=== PATIENT | male | born 1935 | race Caucasian/White ===

== ENCOUNTER 2019-02-25 10:30 | Emergency (ER) | payer MEDICARE, BC ==
[2019-02-25] MEDS ORDERED: Sodium Chloride 0.9% 10 ML Syringe FLUSH PRN (10:48)
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
[2019-02-25 11:17] LABS: ANION GAP 15.1 mmol/L (5-15); CHLORIDE,CL 106 mmol/L (98-115); SODIUM,NA 140 mmol/L (136-145)
--- NOTE | 2019-02-25 11:56 | CR ---
[id number] RAD/RAD Chest PA And Lateral EXAM: RAD Chest PA And Lateral INDICATION: DIZZINESS. COMPARISON: None. DISCUSSION: Cardiomegaly and mild central vascular congestion. Left chest wall cardiac conduction device in place. Scattered calcified granulomas in the lungs. No suspicious nodules or masses. No infiltrate, effusion, pneumothorax, or edema. IMPRESSION: No acute findings in the chest. Other findings are described above. Magno Diallo MD 02/25/19 1151 Thank you for allowing us to participate in the care of your patient.
--- NOTE | 2019-02-25 11:59 | CT ---
[id number] CT/CT Head WO IV EXAM: CT Head WO IV CLINICAL DATA: DIZZINESS. COMPARISON STUDY: None FINDINGS: No intracranial hemorrhage, extra-axial fluid collection, mass, or acute ischemia. Moderate changes of chronic small vessel disease throughout the brain. Chronic bilateral basal ganglia calcification. Mild changes of paranasal sinusitis. No air-fluid levels. IMPRESSION: No acute intracranial findings. Other findings are described above. Magno Diallo MD 02/25/19 1158 Thank you for allowing us to participate in the care of your patient.
== END 2019-02-25 12:20 | disposition home or self-care (01) ==
LOC: KA.ED 10:30
DX: R41.0 Disorientation, unspecified (principal); N39.0 Urinary tract infection, site not specified; Z79.82 Long term (current) use of aspirin; Z79.899 Other long term (current) drug therapy; Z88.0 Allergy status to penicillin
CPT/HCPCS: 70450; 71046; 80053; 81001; 85025; 85610; 85730; 99283; 99285-25

== ENCOUNTER 2019-03-18 07:48 | Day surgery (SDC) | payer MEDICARE, BC ==
[2019-03-18] MEDS ORDERED: Propofol 200 MG/20 ML SDV IV ONE (07:49)
[2019-03-18] MEDS ORDERED: Sodium Chloride 0.9% 1,000 ML IV SCH (08:00)
[2019-03-18] MEDS ORDERED: Sodium Chloride 0.9% 10 ML Syringe FLUSH PRN (08:00)
[2019-03-18] MEDS ORDERED: Propofol 200 MG/20 ML SDV ONE ×2 (09:26→09:45)
[2019-03-18] MEDS ORDERED: EPINEPHrine 1:10,000 1 MG/10 ML Syringe ONE (09:37)
--- NOTE | 2019-03-18 12:02 | PCM.OPNOTE ---
- General Post-Op/Procedure Note Date of Surgery/Procedure: 03/18/19 Operative Procedure(s): Upper GI endoscopy and biopsies. Findings: Moderate size hiatal hernia with mild inflammation noted. Moderate antral gastritis noted. Biopsies taken from the antrum. Pre Op Diagnosis: Dysphagia. Post-Op Diagnosis: Dysphagia. Small hiatal hernia with mild inflammation. Moderate antral gastritis. Anesthesia Technique: MAC Primary Surgeon: Vicenta Cross Complications: None Condition: Good Free Text/Narrative:: INFORMED CONSENT: Patient is here today for elective upper GI endoscopy. All aspects of this procedure have been discussed with the patient. All possible complications also, including possibility of perforation, infection, pain, bleeding, numbness of the throat, swallowing difficulty and unknown complications. In the event of perforation the patient may need surgical exploration to repair the defect. The patient understands fully well. Patient did not have any further questions for me at the end of my interview. The patient wishes for me to proceed. INSTRUMENT USED: Video gastroscope ANESTHESIA: [MAC] ASA CLASSIFICATION: [2] PROCEDURE PERFORMED: [Upper gastrointestinal endoscopy and biopsy] PHARYNX: Normal. ESOPHAGUS: Normal. Proximal: Normal. Middle: Normal. Lower: Normal. GE Junction: 5 cm hiatal hernia with mild inflammation noted.. STOMACH: Normal. Cardia: Normal. Fundus: Normal. Lesser Curvature: Normal. Greater Curvature: Normal. Antrum: Moderate antral gastritis noted. Biopsies were taken.. Pylorus: Normal. DUODENUM: Normal. First Part: Normal. Second Part: Normal. Third Part: Normal. RETROFLEXION: Normal. BIOPSY: None. TOLERANCE: Excellent. COMPLICATIONS: None. Postop diagnosis: 5 cm sized hiatal hernia with mild inflammation. Moderate antral gastritis. Biopsies from the antrum are pending. Tolerance excellent. No complications.
== END 2019-03-18 12:30 ==
LOC: KA.SDS 07:48
PROVIDERS: ATTEND Family Medicine
DX: K44.9 Diaphragmatic hernia without obstruction or gangrene (principal); K29.50 Unspecified chronic gastritis without bleeding; K31.89 Other diseases of stomach and duodenum; I10 Essential (primary) hypertension; E78.49 Other hyperlipidemia; E11.9 Type 2 diabetes mellitus without complications; Z79.1 Long term (current) use of non-steroidal anti-inflammatories (NSAID); Z79.899 Other long term (current) drug therapy; Z79.84 Long term (current) use of oral hypoglycemic drugs; Z79.82 Long term (current) use of aspirin; Z88.0 Allergy status to penicillin; Z72.0 Tobacco use
CPT/HCPCS: 00731; 43239; 82962; 88305; 88342; J2704; J7030